=== PATIENT | female | born 1955 | race Two or more races ===

== ENCOUNTER 2017-05-07 13:07 | Emergency (ER) | payer OTHER, BC ==
[2017-05-07 13:37] VITALS: BP 146/77; PULSE 69; TEMP 98.1; BMI 24.1
--- NOTE | 2017-05-07 14:22 | PDOC ---
History of Present Illness - General Chief Complaint: Injury Stated Complaint: EMPLOYEE, INJURY Time Seen by Provider: 05/07/17 13:59 History Source: Patient Exam Limitations: No Limitations - History of Present Illness Initial Comments: 05/07/17 14:11 CHIEF COMPLAINT: Accidental fall, back pain and right knee pain HISTORY OF PRESENT ILLNESS: Patient is a 61-year-old female, place [facility] states that she was going to get an isolation gown states the floor was wet the next thing you know she slipped and fell to the floor pain to right knee and right lateral lower back. Patient denies hitting her head. Denies any other injury. PMH: None MEDS: None ALLERGIES: None REVIEW OF SYSTEMS: GENERAL/CONSTITUTIONAL: Awake alert and oriented HEAD, EYES, EARS, NOSE AND THROAT: No change in vision. No facial edema, no bruising. NO active bleeding. Nares intact. RESPIRATORY: No cough, wheezing, or hemoptysis. CARDIAC: Denies chest pain, no shortness of breathe. MUSCULOSKELETAL: No spinal point tenderness, Good ROM to all four extremities. Pain to the right knee. Right lower para spinal pain, NO CVA tenderness. No lateral neck pain. GI/: Denies abdominal pain, no nausea or vomiting, no bloody stool, no Hematuria. SKIN : No erythema or bruising noted. No abrasion or lacerations. NEUROLOGIC: No loss of consciousness, no numbness or tingling. PHYSICAL EXAM: GENERAL: Awake and alert and oriented x3. EYES: The pupils are equal, round, and reactive to light, with clear, conjunctiva. Good extraocular movement. No nystagmus NOSE: No nasal trauma . Midface stable MOUTH: Teeth intact. EARS: The ear canals and tympanic membranes are normal without trauma. No drainage. NECK: No Lower cervical C-spine tenderness, no pain with chin to chest. CHEST: The lungs are clear without crackles, or wheezes. No subcutaneous emphysema. No crepitus. HEART: Heart is regular rhythm, with normal S1 and S2, no murmurs. ABDOMEN: The abdomen is soft and nontender with normal bowel sounds. There is no guarding or rebound. MUSCULOSKELETAL: No spinal point tenderness. Right para spinal pain, Pain to the right knee with ROM. No bruising or erythema. Pelvis stable. EXTREMITIES: Extremities are normal. No visible traumatic injury. Pain to the Right knee with ROM. No Fluid appreciated no deformity no erythema or edema. NEUROLOGICAL:Mental status: The patient is oriented x3. No Generalized headache , Romberg - Cranial nerves: Cranial nerves II through XII are intact Motor: The upper extremities are 5 over 5 in all muscle groups. The lower extremities are 5 over 5 in all muscle groups. Sensation: Sensation is intact to light touch throughout. Cerebellar: [id number] is normal in both upper extremities. Heel-knee- baer is normal in both lower extremities. Reflexes: 2+ and symmetric in the upper and lower extremities. Gait: Normal. Heel and toe walking are normal. Tandem gait is normal. SKIN: Without edema, erythema or bruising. No abrasions or lacerations. 05/08/17 09:21 Past History - Past Medical History Allergies/Adverse Reactions: Allergies Allergy/AdvReac Type Severity Reaction Status Date / Time No Known Allergies Allergy Verified 05/07/17 13:37 Home Medications: Ambulatory Orders Ibuprofen [Motrin -] 600 mg PO QID #28 tablet 05/07/17 Other medical history: denies - Psycho/Social/Smoking Cessation Hx Anxiety: No Suicidal Ideation: No Smoking Status: No Smoking History: Never smoked Have you smoked in the past 12 months: No Number of Cigarettes Smoked Daily: 0 Information on smoking cessation initiated: No Hx Alcohol Use: No Drug/Substance Use Hx: No Substance Use Type: None *Physical Exam - Vital Signs Last Vital Signs Temp Pulse Resp BP Pulse Ox 98.1 F 69 16 146/77 98 05/07/17 13:29 05/07/17 13:29 05/07/17 13:29 05/07/17 13:29 05/07/17 13:29 Medical Decision Making - Medical Decision Making 05/07/17 14:23 A/P: Patient here for evaluation status post fall denies any LOC or head injury , pain to right lateral hip and right knee. Sent to x-ray. Motrin 600 mg times one given. X-rays were negative for acute fracture dislocation, obesity patient home, supportive care, anti-inflammatories for pain. Follow-up with orthopedics if pain persists. 05/08/17 09:21 *DC/Admit/Observation/Transfer Diagnosis at time of Disposition: Accidental fall Qualifiers: Encounter type: initial encounter Qualified Code(s): W19.XXXA - Unspecified fall, initial encounter Injury of back Qualifiers: Encounter type: initial encounter Qualified Code(s): S39.92XA - Unspecified injury of lower back, initial encounter Injury of knee, right Qualifiers: Encounter type: initial encounter Qualified Code(s): S89.91XA - Unspecified injury of right lower leg, initial encounter - Discharge Dispostion Disposition: HOME Condition at time of disposition: Improved Admit: No - Prescriptions Prescriptions: Ibuprofen [Motrin -] 600 mg PO QID #28 tablet - Referrals Referrals: Ap Saez MD [Staff Physician] - - Patient Instructions Additional Instructions: Increase fluids for the next 24 hours. Ice to knee. Follow up with ortho i one week if pain persists. If any increased pain, numbness, tingling or other concerns return to the ER. Follow-up with occupational medicine if time off - Post Discharge Activity Work/School Note: Back to Work
[2017-05-07] MEDS ORDERED: IBUPROFEN 600 MG TABLET (FP) PO ONE ×2 (15:35→15:36)
== END 2017-05-07 15:54 | disposition home or self-care (01) ==
LOC: JERFT 13:07
DX: S39.82XA Other specified injuries of lower back, initial encounter (principal); S89.81XA Other specified injuries of right lower leg, initial encounter; W01.0XXA Fall on same level from slipping, tripping and stumbling without subsequent striking against object, initial encounter; Y93.89 Activity, other specified; Y92.232 Corridor of hospital as the place of occurrence of the external cause; Y99.0 Civilian activity done for income or pay
CPT/HCPCS: 73523-TC; 73562-TC-RT; 99281-25